=== PATIENT | male | born 1965 | race Caucasian/White ===

== ENCOUNTER → 2019-02-13 | Outpatient (CLI) | payer OTHER | LOC: COL.RAD 09:00 | DX: M25.552 Pain in left hip (principal) | CPT/HCPCS: J3301; Q9967 ==

== ENCOUNTER 2020-01-31 20:56 | Emergency (ER) | payer OTHER ==
[~2020-01-31] VITALS: Ht 175.3 cm; Wt 80.9 kg
[2020-01-31 21:04] VITALS: TEMP 99
[2020-01-31 21:48] LABS: BASO # 0.1 (0.0-0.2); BASO % 0.9 % (0.0-2.0); EOS # 0.3 (0.0-0.7); GRAN # 4.5 (1.4-6.5); HEMATOCRIT 42.5 % (42.0-52.0); LYMPH % 26.4 % (20.0-51.0); MEAN CELL VOLUME 86 fl (80.0-100.0); MEAN CORPUSCULAR HEMOGLOBIN 28 pg (27.0-31.0); MEAN CORPUSCULAR HGB CONC 33 g/dl (33.0-37.0); MEAN PLATELET VOLUME 9.7 fl (7.4-10.4); MONO # 0.6 (0.1-0.6); MONO % 8.6 % (1.7-9.3); PLATELET COUNT 276 K/mm3 (130-400); RED BLOOD COUNT 4.97 M/mm3 (4.20-5.60); REDCELL DISTRIBUTION WIDTH-CV 13.1 % (11.5-14.5)
[2020-01-31 22:01] LABS: ALANINE AMINOTRANSFERASE 28 U/L (21-72); ALBUMIN 4.3 gm/dL (3.5-5.0); ALKALINE PHOSPHATASE 61 U/L (50-136); ANION GAP 9 mmol/L (7-16); AST,SGOT 25 U/L (15-37); BILIRUBIN,TOTAL 0.4 mg/dL (0.0-1.0); BLOOD UREA NITROGEN 13 mg/dL (9-20); C-REACTIVE PROTEIN < 0.5 mg/dL (0.0-0.9); CALCIUM 9.1 mg/dL (8.4-10.2); CARBON DIOXIDE 28 mmol/L (22-30); CHLORIDE 102 mmol/L (98-107); CREATINE KINASE 246 U/L (55-170); CREATININE, serum 0.93 (0.66-1.25); GLUCOSE 104 mg/dL (74-106); POTASSIUM 4.2 mmol/L (3.4-5.0); SODIUM 139 mmol/L (137-145); TOTAL PROTEIN 7.2 gm/dL (6.4-8.2)
[2020-01-31 23:03] LABS: COLLECTION METHOD CLEAN CATCH
[2020-01-31] MEDS ORDERED: OMNICEF 300MG300 MG PO (23:08)
[2020-01-31 23:10] LABS: MUCOUS Present /lpf; PH 5 (5-8); SQUAMOUS EPITHELIAL None Seen /hpf; URINE APPEARANCE Clear; URINE BACTERIA None Seen /hpf; URINE BILIRUBIN Negative (NEGATIVE); URINE BLOOD Negative (NEGATIVE); URINE COLOR Yellow; URINE GLUCOSE Negative (NEGATIVE); URINE KETONE Trace (NEGATIVE); URINE LEUKOCYTE ESTERASE Negative (NEGATIVE); URINE NITRATE Negative (NEGATIVE); URINE PROTEIN(semi-quant) Negative (NEGATIVE); URINE RBC 0-2 /hpf; URINE UROBILINOGEN Negative (NEGATIVE)
[2020-01-31 23:27] VITALS: BP 115/77; PULSE 70
== END 2020-01-31 23:30 | disposition home or self-care (01) ==
LOC: COL.ER 20:56
PROVIDERS: Emergency Medicine
DX: B34.9 Viral infection, unspecified (principal)
CPT/HCPCS: J2550; J7030